=== PATIENT | female | born 1985 | race Hispanic/Latino ===

== ENCOUNTER 2019-11-21 14:01 | Outpatient (CLI) | payer BC ==
--- NOTE | 2019-11-21 14:59 | ULT ---
EXAM: Transabdominal and transvaginal pelvic ultrasound with Doppler PROVIDED CLINICAL HISTORY: Polycystic ovarian syndrome COMPARISON: None FINDINGS: The uterus measures approximately 8 x 3.7 x 4 cm and demonstrates a normal sonographic appearance. Ut erine endometrial thickness is measurement. Right ovary is not visualized. Left ovary measures approximately 3.1 x 2.8 x 2.1 cm and demonstrates a normal sonographic appearance . Grayscale and color Doppler sonography with spectral analysis of the ovarian waveforms demonstrates n ormal to the left ovary. There is no evidence for free pelvic fluid. IMPRESSION: Unremarkable pelvic ultrasound with limitations due to nonvisualization of the right ovary.
== END 2019-11-21 14:02 | disposition home or self-care (01) ==
LOC: BICULT 14:01
PROVIDERS: ATTEND Specialist
DX: E28.2 Polycystic ovarian syndrome (principal)
CPT/HCPCS: 76856

== ENCOUNTER 2021-08-12 13:55 | Outpatient (CLI) | payer BC | END 2021-08-12 13:56 | disposition home or self-care (01) | LOC: DTY/OP 13:55 | PROVIDERS: ATTEND Specialist | DX: Z01.818 Encounter for other preprocedural examination (principal); E66.01 Morbid (severe) obesity due to excess calories | CPT/HCPCS: 97802 ==

== ENCOUNTER 2021-11-21 10:15 | Inpatient (IN) | payer BC ==
[2021-11-24] MEDS ORDERED: Ketorolac Tromethamine 30 MG/ML VIAL ONE (06:13)
[2021-11-24] MEDS ORDERED: Acetaminophen 500 MG TAB ONE (06:13)
[2021-11-24] MEDS ORDERED: CEFAZOLIN 2 GM VIAL ONE (06:13)
[2021-11-24] MEDS ORDERED: Sodium Chloride 0.9% 100 ML ONE (06:13)
[2021-11-24] MEDS ORDERED: EPINEPHrine 1 MG/ML AMP ONE (06:38)
[2021-11-24] MEDS ORDERED: Bupivacaine 0.25% 10 ML VIAL ONE (06:38)
[2021-11-24] MEDS ORDERED: Heparin 5,000 UNITS/ML VIAL ONE (06:41)
[2021-11-24] MEDS ORDERED: Scopolamine 1.5 mg/72 hour Patch ONE (06:41)
[2021-11-24] MEDS ORDERED: fentaNYL Citrate/PF 100 MCG/2 ML SYRINGE ONE ×2 (06:49→06:50)
[2021-11-24] MEDS ORDERED: Midazolam HCl 2 mg/2 ml Vial ONE (07:29)
[2021-11-24] MEDS ORDERED: Rocuronium Bromide 10 MG/ML (10ML VIAL) ONE (07:42)
[2021-11-24] MEDS ORDERED: Glycopyrrolate 0.2 MG/ML 5 ML SYRINGE ONE (07:42)
[2021-11-24] MEDS ORDERED: PROPOFOL 200 MG/20 ML VIAL ONE (07:42)
[2021-11-24] MEDS ORDERED: Lidocaine 1% PF 5 ML VIAL ONE (07:42)
[2021-11-24] MEDS ORDERED: Ondansetron PF 4 MG/2 ML Vial ONE (07:42)
[2021-11-24] MEDS ORDERED: Promethazine HCl 25 MG/ML VIAL IVPB PRN (08:32)
[2021-11-24] MEDS ORDERED: Promethazine HCl 25 MG/ML VIAL IM PRN ×2 (08:32→09:25)
[2021-11-24] MEDS ORDERED: HYDROmorphone 2 MG/ML VIAL SLOW IVP PRN (08:32)
[2021-11-24] MEDS ORDERED: Meperidine HCl/PF 25 MG/ML VIAL SLOW IVP PRN (08:32)
[2021-11-24] MEDS ORDERED: Dextrose 50% Abboject 50 ML SYRINGE SLOW IVP PRN (09:25)
[2021-11-24] MEDS ORDERED: Morphine 2 MG/ML VIAL SLOW IVP PRN (09:25)
[2021-11-24] MEDS ORDERED: Morphine 4 MG/ML VIAL SLOW IVP PRN (09:25)
[2021-11-24] MEDS ORDERED: diphenhydrAMINE 50 MG/ML VIAL IVP PRN (09:25)
[2021-11-24] MEDS ORDERED: ALPRAZolam 0.5 MG TAB PO PRN (09:25)
[2021-11-24] MEDS ORDERED: hydrALAZINE 20 MG/ML VIAL SLOW IVP PRN (09:25)
[2021-11-24] MEDS ORDERED: Dextrose 5% in Water 1,000 ML IV PRN (09:25)
[2021-11-24] MEDS ORDERED: Rosuvastatin 20 MG TAB PO SCH (10:15)
[2021-11-24] MEDS ORDERED: Pantoprazole 40 MG VIAL IVP SCH (10:15)
[2021-11-24] MEDS ORDERED: Bupropion 150 MG XL TAB PO SCH (10:15)
[2021-11-24] MEDS: Ketorolac Tromethamine 30 MG/ML VIAL IVP SCH ×3 (11:43→23:36)
[2021-11-24] MEDS: D5 1/2 NS w/20 mEq KCL 1,000 ML IV SCH ×2 (11:43→17:32)
[2021-11-24] MEDS: Hydrocodone-Acetamin 15 ML UDCUP PO PRN ×3 (12:28→23:36)
[2021-11-24] MEDS: Ondansetron PF 4 MG/2 ML Vial IVP PRN ×2 (12:28→23:39)
[2021-11-24 13:30] VITALS: BMI 38.7
[2021-11-24] MEDS ORDERED: Enoxaparin Sodium 40 MG/0.4 ML SYRINGE SC SCH (21:00)
[2021-11-25] MEDS: D5 1/2 NS w/20 mEq KCL 1,000 ML IV SCH ×2 (03:30→09:25)
[2021-11-25] MEDS: Hydrocodone-Acetamin 15 ML UDCUP PO PRN ×3 (03:33→13:11)
[2021-11-25] MEDS: Ketorolac Tromethamine 30 MG/ML VIAL IVP SCH ×2 (05:57→11:50)
[2021-11-25 06:32] LABS: #Lymphocytes 2.1 thou/uL (1.20-3.40); #Monocytes 0.6 thou/uL (0.11-0.59); #Neutrophils 12.1 thou/uL (1.40-6.50); %Basophils 0.3 % (0.0-1.0); %Eosinophils 0.1 % (0.0-10.0); %Lymphocytes 13.8 % (21.0-51.0); %Monocytes 4.1 % (0.0-10.0); %Neutrophils 81.7 % (42.0-75.0); Hemoglobin 14.1 g/dL (12.0-16.0); Mean Corpuscular HGB CONC 32.7 g/dL (32.0-36.0); Mean Corpuscular Hemoglobin 31.1 pg (27.0-31.0); Mean Corpuscular Volume 94.9 fL (78.0-98.0); Mean Platelet Volume 7.2 fL (7.4-10.4); Platelet Count 307 thou/uL (130-400); RBC Distribution Width 12.3 % (11.5-14.5); Red Blood Cell (RBC) Count 4.54 mill/uL (4.20-5.40); White Blood Cell (WBC) Count 14.9 thou/uL (4.8-10.8)
[2021-11-25 07:37] LABS: Anion Gap 10 mmol/L (10-20); BUN (Urea Nitrogen) 5 mg/dL (7.0-18.7); Calc. Creatinine Clearance 148 mL/min (70-130); Calcium 8.6 mg/dL (7.8-10.44); Carbon Dioxide 26 mmol/L (22-29); Chloride 107 mmol/L (98-107); Glucose 113 mg/dL (70-105); Potassium 3.8 mmol/L (3.5-5.1); Sodium 139 mmol/L (136-145)
[2021-11-25] MEDS ORDERED: Pantoprazole 40 MG VIAL IVP SCH (09:00)
[2021-11-25] MEDS ORDERED: LISDEXAMFETAMINE DIMESYLATE 50 MG PO SCH (09:00)
[2021-11-25] MEDS ORDERED: Bupropion 150 MG XL TAB PO SCH (09:00)
[2021-11-25 15:39] VITALS: BP 149/91; TEMP 97.8
[2021-11-25] MEDS ORDERED: Rosuvastatin 20 MG TAB PO SCH (21:00)
== END 2021-11-25 16:00 | disposition home or self-care (01) | DRG 621 ==
LOC: SURG A 11-24 05:53 → SJJU 11-24 10:18
PROVIDERS: ADMIT Specialist; ATTEND Specialist
PROC: 0DB64Z3 Excision of Stomach, Percutaneous Endoscopic Approach, Vertical (ICD-10-PCS; principal; 2021-11-24)
DX: E66.01 Morbid (severe) obesity due to excess calories (principal); Z20.822 Contact with and (suspected) exposure to COVID-19; G47.33 Obstructive sleep apnea (adult) (pediatric); G43.909 Migraine, unspecified, not intractable, without status migrainosus; F98.8 Other specified behavioral and emotional disorders with onset usually occurring in childhood and adolescence; F32.A Depression, unspecified; E11.9 Type 2 diabetes mellitus without complications; I10 Essential (primary) hypertension; E78.00 Pure hypercholesterolemia, unspecified; N20.0 Calculus of kidney; Z79.84 Long term (current) use of oral hypoglycemic drugs; Z79.899 Other long term (current) drug therapy; Z68.38 Body mass index [BMI] 38.0-38.9, adult; Z88.8 Allergy status to other drugs, medicaments and biological substances; Z85.51 Personal history of malignant neoplasm of bladder
CPT/HCPCS: 36415; 80048; 85025; 88307; C9113; J0171; J1644; J1650; J1885; J2250; J2270; J2405; J3480; J3490; S0020

== ENCOUNTER 2021-11-21 10:21 | Outpatient (CLI) | payer BC ==
[2021-11-21 11:42] LABS: #Basophils 0.1 10x3/uL (0.0-0.2); #Eosinphils 0.1 10x3/uL (0.0-0.5); #Monocytes 0.4 10x3/uL (0.0-1.1); #Neutrophils 6.1 10x3/uL (1.5-8.4); %Basophils 0.7 % (0.0-2.0); %Eosinophils 1.4 % (0.0-6.0); %Lymphocytes 26.7 % (18.0-47.0); %Monocytes 4.3 % (0.0-10.0); %Neutrophils 66.7 % (40.0-75.0); Hemoglobin 13.3 g/dL (12.0-15.5); Mean Corpuscular HGB CONC 34.6 g/dL (32.0-36.0); Mean Corpuscular Hemoglobin 30.5 pg (27.0-33.0); Mean Corpuscular Volume 88.1 fl (81.6-98.3); Mean Platelet Volume 9.9 fl (7.4-10.4); Platelet Count 295 10x3/uL (150-450); RBC Distribution Width 12.8 % (11.5-14.5); Red Blood Cell (RBC) Count 4.36 10x6/uL (3.90-5.03); White Blood Cell (WBC) Count 9.1 10x3/uL (3.5-10.5)
[2021-11-21 12:11] LABS: BHCG - Serum Negative (NEGATIVE); Pregs Control Bar Appear? YES (CONTROL BAR)
[2021-11-21 12:12] LABS: Pregs Control Background? CLEAR/WHITE (CLR/WHITE)
[2021-11-21 12:19] LABS: Anion Gap 14 mmol/L (10-20); BUN (Urea Nitrogen) 27 mg/dL (7.0-18.7); Calc. Creatinine Clearance 0 mL/min (70-130); Calcium 9.4 mg/dL (7.8-10.44); Carbon Dioxide 26 mmol/L (22-29); Chloride 105 mmol/L (98-107); Glucose 97 mg/dL (70-105); Potassium 4.5 mmol/L (3.5-5.1); Sodium 140 mmol/L (136-145)
[2021-11-21 20:13] LABS: SARS-CoV-2 PCR by NAA Not Detected (NotDetected)
== END 2021-11-21 10:22 | disposition home or self-care (01) ==
LOC: LABBT 10:21
PROVIDERS: ATTEND Specialist
DX: Z01.818 Encounter for other preprocedural examination (principal); E66.01 Morbid (severe) obesity due to excess calories; Z20.822 Contact with and (suspected) exposure to COVID-19
CPT/HCPCS: 80048; 84703; 85025; 93005; 93010; U0003; U0005

== ENCOUNTER 2024-07-07 14:57 | Outpatient (CLI) | payer BC ==
[~2024-07-07 14:57] MED LIST: Magnevist 469MG/ML 20 ML VIAL ONE
== END 2024-07-07 14:58 | disposition home or self-care (01) ==
LOC: BICMRI 14:57
PROVIDERS: ATTEND Specialist
DX: G43.709 Chronic migraine without aura, not intractable, without status migrainosus (principal)
CPT/HCPCS: 70553